=== PATIENT | female | born 1950 ===

== ENCOUNTER 2024-10-23 06:50 | Day surgery (SDC) | payer MEDICARE ==
[2024-10-23] MEDS ORDERED: fentaNYL 100 MCG/2 ML SDV ONE (07:03)
[2024-10-23] MEDS ORDERED: Propofol 200 MG/20 ML SDV ONE (07:03)
[2024-10-23] MEDS: Lactated Ringers 1,000 ML IV SCH (07:26)
== END 2024-10-23 09:15 | disposition home or self-care (01) ==
LOC: JP.SDS 06:50
PROVIDERS: ATTEND Family Medicine
DX: Z12.11 Encounter for screening for malignant neoplasm of colon (principal); D12.2 Benign neoplasm of ascending colon; K57.30 Diverticulosis of large intestine without perforation or abscess without bleeding; K21.9 Gastro-esophageal reflux disease without esophagitis; Z80.0 Family history of malignant neoplasm of digestive organs; Z91.030 Bee allergy status; Z88.2 Allergy status to sulfonamides; Z88.8 Allergy status to other drugs, medicaments and biological substances
CPT/HCPCS: 00811; 45380; 88305; J2704; J3010; J7120